=== PATIENT | male | born 1970 | race Caucasian/White ===

== ENCOUNTER 2018-01-01 21:29 | Emergency (ER) | payer OTHER, SELFPAY ==
[2018-01-01 21:31] VITALS: BP 144/82; PULSE 64; RESP 18; TEMP 36.1; O2SAT 96; BMI 34.0
--- NOTE | 2018-01-01 21:39 | RAD_ITS ---
STUDY: X-RAY - LEFT FOOT CLINICAL: Male, 47 years old. Injury TECHNIQUE: 3 view(s) of the foot. COMPARISON: None. FINDINGS: Normal talus, calcaneus, and tarsal bones. Normal visualized subtalar, talonavicular, calcaneocuboid, tarsal and tarsometatarsal articulations. Normal metatarsophalangeal joint of the great toe. Normal tibial and fibular sesamoid bones. Normal interphalangeal joint of the great toe. Normal phalanges of the great toe. Normal second through fifth metatarsophalangeal joints. Normal interphalangeal joints and phalanges of the lesser toes. The soft tissue structures are unremarkable. RAD/Foot min 3 Views IMPRESSION: No acute fracture Electronically Signed: Thien Garcia MD at 21:57 EDT Tel , Service support ,
--- NOTE | 2018-01-01 22:04 | ED.VISSUMM ---
- ER Visit Summary Date of Service: 01/01/18 Chief Complaint: Foot injury left History of Present Illness: The patient is a 47 M tractor rolled forward and awkwardly bent his foot. It hyperextended his toes at the M TP joint. Symptoms occur about 1-2 hours ago. He has had some pain he went to have it evaluated. He denies any laceration. Denies any numbness. No other injuries. Physical Examination: Well-appearing middle-age male. Vital signs stable afebrile. HEENT exam unremarkable neck nontender. Lungs are clear. Chest nontender. Heart regular rate and rhythm no murmur. Abdomen soft nontender. Extremities moving all 4 neurovascular intact specifically the left knee, tib-fib and ankle are completely nontender normal range of motion no signs of trauma. He is a normal DP pulse to his left foot. His Achilles tendon is intact. He has full and complete dorsi plantar flexion of the left ankle. He has mild tenderness on the top of his foot along the midportion of the mid metatarsals. There are no gross bony deformities. He is able to wiggle his toes. He has normal touch sensation and cap refill. Skin is intact. There is no bruising or lacerations. Test Results: Three-view x-ray of his left foot read by myself and the radiologist shows no acute fracture or dislocation. I did go over the films with the patient. Emergency Department Course and Treatment: Ice and elevate his foot. Motrin for pain. Treatment Plan: Follow-up with local orthopedic surgeon Dr. Ludwig is conference translator today if not improving. Disposition: Discharge Impression: Left foot contusion This note was generated with [employer] dictation software. It may contain incorrect words, spelling, and punctuation that were not noted in review of the chart prior to signing ED Disposition - Plan for ED Patient: Chief Complaint: Lower Extremity Injury Referrals: Jose C Lerner [Primary Care Provider] -
--- NOTE | 2018-01-01 22:07 | ED.DEP ---
ED Disposition - Plan for ED Patient: Disposition: Home or Assisted Living Chief Complaint: Lower Extremity Injury Instructions: ED Contusion Lower Ext Referrals: Nathalie Ludwig DO [STAFF PHYSICIAN] - 1 Week if not improving Additional Instructions: Ice and elevate. Motrin for pain and swelling. Call and follow-up with and Oziel the orthopedic surgeon if not improving in 1 week.
[2018-01-01 22:23] VITALS: PULSE 71; RESP 14; O2SAT 97
== END 2018-01-01 22:24 | disposition home or self-care (01) ==
LOC: ED 22:14
PROVIDERS: Emergency Provider Emergency Medicine; Family Provider Family Medicine; PCP Family Medicine
DX: S90.32XA Contusion of left foot, initial encounter (principal); W31.82XA Contact with other commercial machinery, initial encounter; Y93.89 Activity, other specified; Y92.89 Other specified places as the place of occurrence of the external cause; Y99.9 Unspecified external cause status
CPT/HCPCS: 73630; 99282